=== PATIENT | male | born 1975 | race Caucasian/White ===

== ENCOUNTER 2021-04-02 19:11 | Emergency (ER) | payer MEDICAID ==
[~2021-04-02] VITALS: Ht 198.1 cm; Wt 127.0 kg
[2021-04-02 19:40] VITALS: BP_SYST 171
--- NOTE | 2021-04-02 19:40 | NUR ---
PT TO REMAIN IN TENT UNTIL ER BED BECOMES AVAILABLE.
--- NOTE | 2021-04-02 19:45 | NUR ---
PT AAO AND AMBULATORY REPORTING THROAT PAIN X 1.5 DAYS. PT REPORTS THAT HE HAD A FEVER AND MEDICATED AT HOME BUT IS UNABLE TO TOLERATE PO DUE TO PAIN.
--- NOTE | 2021-04-02 21:20 | NUR ---
DR. WHITTAKER TO TENT TO ASSESS.
[2021-04-02] MEDS ORDERED: PENI250T2 PO (21:28)
[2021-04-02] MEDS: PENICILLIN G BENZATHINE 1.2 MMU/2 ML SYR IM ONE (21:33)
[2021-04-02 22:05] VITALS: BP_SYST 158
--- NOTE | 2021-04-02 22:05 | NUR ---
Patient given written and verbal discharge instructions and verbalizes understanding. DR. REMEDIOS GRIFFIN MD discussed with patient the results and treatment provided. Patient in stable condition. ID arm band removed. Rx PER MD. Patient educated on pain management and to follow up with PMD. Pain Scale 0/10. Opportunity for questions provided and answered. Medication side effect fact sheet provided.
[2021-04-03] MEDS ORDERED: TRAM50TA2 PO (19:31)
[2021-04-03] MEDS ORDERED: ONDA-8 TL (19:31)
== END 2021-04-02 22:05 | disposition home or self-care (01) ==
LOC: SED 19:11
DX: J03.90 Acute tonsillitis, unspecified (principal); F17.210 Nicotine dependence, cigarettes, uncomplicated; Z79.899 Other long term (current) drug therapy
CPT/HCPCS: 96372; 99283; J0561

== ENCOUNTER 2021-04-03 17:26 | Emergency (ER) | payer MEDICAID ==
[~2021-04-03] VITALS: Ht 198.1 cm; Wt 127.0 kg
[~2021-04-03 17:26] MED LIST: PENI250T2 PO
[2021-04-03 17:43] VITALS: BP_SYST 141
[2021-04-03] MEDS ORDERED: KETOROLAC TROMETHAMINE 30 MG VIAL IVP ONE (17:45)
[2021-04-03] MEDS ORDERED: MORPHINE 4 MG INJ. 4 MG/ML VIAL IVP ONE (17:45)
[2021-04-03] MEDS ORDERED: AMPICILLIN SODIUM/SULBACTAM NA 3 GM in NS 100 ML IV ONE (17:45)
[2021-04-03] MEDS ORDERED: ONDANSETRON HCL 4 MG/2 ML VIAL IVP ONE (17:45)
[2021-04-03] MEDS ORDERED: NACL 0.9% 1,000 ML IV ONE (17:45)
[2021-04-03] MEDS ORDERED: DEXAMETHASONE SOD PHOSPHATE 10 MG/ML VIAL IVP ONE (17:45)
[2021-04-03] MEDS ORDERED: AMPICILLIN SODIUM/SULBACTAM NA 3 GM VIAL ONE (18:08)
[2021-04-03] MEDS ORDERED: TRAM50TA2 PO (19:31)
[2021-04-03] MEDS ORDERED: ONDA-8 TL (19:31)
[2021-04-03 19:58] VITALS: BP_SYST 122
== END 2021-04-03 19:58 | disposition home or self-care (01) ==
LOC: SED 17:26
DX: J03.90 Acute tonsillitis, unspecified (principal); Z79.899 Other long term (current) drug therapy
CPT/HCPCS: 96365; 96375; 99284; J0295; J1100; J1885; J2270; J2405

== ENCOUNTER 2021-12-23 20:02 | Emergency (ER) | payer MEDICAID ==
[~2021-12-23] VITALS: Ht 198.1 cm; Wt 142.9 kg
[~2021-12-23 20:02] MED LIST changes: +ONDA-8 TL; +TRAM50TA2 PO
[2021-12-23 20:14] VITALS: BP_SYST 191
--- NOTE | 2021-12-23 20:14 | NUR ---
Patient to ER bed 04 to gown for evaluation. Side rails up.
--- NOTE | 2021-12-23 20:17 | NUR ---
pt drove to er via private vehicle, presented to er with complaint of left flank pain 05/26. pt drove to er with his . pt stated he had bad cough and last Thursday he woke up coughing in the middle of the night and felt as if something "popped" on his left side and felt extruciating pain. Pt stated that two days later he had blood in the urine that lasted 2 days. pt today continues with pain on his left flank and additionally now has a bruise on his left flank that appeared today, pt denies any injury. pt has a history of dm does not take any meds for dm, pt also has a hx of hypertension. glucose reading is 278. pt is in bed with bed lowered, locked and rail up.
[2021-12-23 20:46] LABS: CLARITY/URINE CLEAR (CLEAR); COLOR,URINE ORANGE (YELLOW); PROTEIN URINE TRACE (NEGATIVE)
[2021-12-23 20:47] LABS: BILIRUBIN,URINE NEGATIVE (NEGATIVE); BLOOD, URINE TRACE (NEGATIVE); GLUCOSE,URINE NEGATIVE (NEGATIVE); KETONES,URINE NEGATIVE (NEGATIVE); LEUKOCYTE ESTERASE ,URINE NEGATIVE (NEGATIVE); NITRITE, URINE NEGATIVE (NEGATIVE)
[2021-12-23 20:48] LABS: UROBILINOGEN,URINE 0.2 (0.2-1.0)
[2021-12-23 20:53] LABS: HEMOGLOBIN 16.2 g/dL (14.0-18.0)
[2021-12-23 20:58] LABS: BASOPHILS # (AUTO) 0.1 K/uL (0.0-0.2); BASOPHILS % (AUTO) 0.9 % (0.0-2.0); EOSINOPHILS # (AUTO) 0.4 K/uL (0.0-0.4); EOSINOPHILS % (AUTO) 4.2 % (0.0-4.0); HEMATOCRIT 46.1 % (36-54); LYMPHOCYTES # (AUTO) 2.8 K/uL (1.0-5.5); LYMPHOCYTES % (AUTO) 27.3 % (20.5-51.5); MEAN CORPUSCULAR HEMOGLOBIN 30 pg (27-31); MEAN CORPUSCULAR HGB CONC 35 % (32-36); MEAN CORPUSCULAR VOLUME 85 fL (79.0-98.0); MONOCYTES # (AUTO) 0.6 K/uL (0.0-1.0); MONOCYTES % (AUTO) 5.8 % (1.7-9.3); NEUTROPHILS # (AUTO) 6.4 K/uL (1.8-7.7); NEUTROPHILS % (AUTO) 61.8 % (40.0-70.0); PLATELET COUNT (AUTO) 193 K/uL (130-430); RED BLOOD CELL COUNT(AUTO) 5.43 MIL/uL (4.2-6.2); RED CELL DISTRIBUTION WIDTH 12.5 % (9.0-15.0); WHITE BLOOD COUNT (AUTO) 10.3 K/uL (4.8-10.8)
--- NOTE | 2021-12-23 21:05 | NUR ---
Dr. Dewitt at bedside.
[2021-12-23 21:14] LABS: ANION GAP 7 (5-15); CALCIUM 8.6 mg/dL (8.4-11.0); CHLORIDE 99 mmol/L (98-107); CREATININE 1.11 mg/dL (0.55-1.30); GLUCOSE 279 mg/dL (70-99); POTASSIUM 4.1 mmol/L (3.5-5.1); SODIUM SERUM 131 mmol/L (136-145); UREA NITROGEN, BLOOD 22 mg/dL (8-21)
[2021-12-23 21:20] LABS: ALANINE AMINOTRANSFERASE 34 U/L (12-78); ALBUMIN 3.6 g/dL (3.4-4.8); ASPARTATE AMINOTRANSFERASE 5 U/L (10-37); TOTAL BILIRUBIN 0.3 mg/dL (0.0-1.0)
[2021-12-23 21:25] LABS: GFR AFRICAN AMERICAN 91 mL/min (>90)
[2021-12-23 22:12] LABS: ACETONE, SERUM NEGATIVE (NEGATIVE)
--- NOTE | 2021-12-23 22:30 | NUR ---
Verbalizes improvement in pain and no needs verbalized at this time.
[2021-12-23] MEDS ORDERED: D-ME118S48 PO (23:41)
[2021-12-23] MEDS ORDERED: IBUP-1971 PO (23:43)
[2021-12-23 23:55] VITALS: BP_SYST 118
--- NOTE | 2021-12-23 23:55 | NUR ---
Patient given written and verbal discharge instructions and verbalizes understanding. ER MD discussed with patient the results and treatment provided. Patient in stable condition. ID arm band removed. IV catheter removed intact and dressing applied, no active bleeding. Rx of Bromfed Dm Cough Syrup and Ibuprofen given. Patient educated on pain management and to follow up with PMD. Pain Scale 0/10. Opportunity for questions provided and answered. Medication side effect fact sheet provided.
== END 2021-12-23 23:55 | disposition home or self-care (01) ==
LOC: SED 20:02
DX: J20.9 Acute bronchitis, unspecified (principal); I10 Essential (primary) hypertension; E11.9 Type 2 diabetes mellitus without complications; Z20.822 Contact with and (suspected) exposure to COVID-19
CPT/HCPCS: 36415; 71045; 80053; 81003; 82009; 85025; 99284

== ENCOUNTER 2023-08-03 22:24 | Emergency (ER) | payer MEDICAID ==
[~2023-08-03] VITALS: Ht 195.6 cm; Wt 115.7 kg
[~2023-08-03 22:24] MED LIST changes: +BROM118S61 PO; +IBUP-1971 PO
[2023-08-03 22:40] VITALS: BP_SYST 123; PULSE 104; RESP 14; TEMP 98; O2SAT 93
[2023-08-03] MEDS ORDERED: AZITHROMYCIN 500 MG/VIAL (ZITHROMAX) IV ONE (23:00)
[2023-08-03] MEDS ORDERED: NACL 0.9% 1,000 ML IV ONE (23:00)
[2023-08-03] MEDS ORDERED: cefTRIAXone 1 GM IVPB PREMIX 50 ML IV ONE (23:00)
[2023-08-03] MEDS ORDERED: AZITHROMYCIN 500 MG in NS 250 ML IV ONE (23:00)
[2023-08-03 23:27] LABS: BASOPHILS % (AUTO) 0.2 % (0.0-2.0); EOSINOPHILS # (AUTO) 0.1 K/uL (0.0-0.4); EOSINOPHILS % (AUTO) 1.3 % (0.0-4.0); HEMATOCRIT 46.5 % (36-54); HEMOGLOBIN 15.2 g/dL (14.0-18.0); LYMPHOCYTES # (AUTO) 2.3 K/uL (1.0-5.5); LYMPHOCYTES % (AUTO) 20.4 % (20.5-51.5); MEAN CORPUSCULAR HEMOGLOBIN 26 pg (27-31); MEAN CORPUSCULAR HGB CONC 33 % (32-36); MEAN CORPUSCULAR VOLUME 80 fL (79.0-98.0); MONOCYTES # (AUTO) 0.7 K/uL (0.0-1.0); MONOCYTES % (AUTO) 6.6 % (1.7-9.3); NEUTROPHILS % (AUTO) 71.5 % (40.0-70.0); PLATELET COUNT (AUTO) 260 K/uL (130-430); WHITE BLOOD COUNT (AUTO) 11.1 K/uL (4.8-10.8)
[2023-08-03] MEDS ORDERED: MORPHINE 4 MG INJ. 4 MG/ML VIAL IVP ONE (23:45)
[2023-08-03 23:47] LABS: BILIRUBIN,URINE 1+ (NEGATIVE); BLOOD, URINE NEGATIVE (NEGATIVE); COLOR,URINE YELLOW (YELLOW); GLUCOSE,URINE NEGATIVE (NEGATIVE); KETONES,URINE TRACE (NEGATIVE); LEUKOCYTE ESTERASE ,URINE NEGATIVE (NEGATIVE); NITRITE, URINE NEGATIVE (NEGATIVE); PROTEIN URINE 2+ (NEGATIVE); UROBILINOGEN,URINE 0.2 (0.2-1.0)
[2023-08-04 00:08] LABS: BLOOD GAS HCO3 22.7 mmol/L (21.0-27.0); BLOOD GAS PCO2 40.9 mmHg (32.0-45.0); BLOOD GAS PH 7.363 (7.350-7.450); BLOOD GAS PO2 67.7 mmHg (75.0-100.0)
[2023-08-04 00:09] LABS: ABG O2 SAT% ESTIMATE 92.9 % (94.0-100.0); ALLEN'S TEST POSITIVE (P); BLOOD GAS BASE EXCESS -2.5 mmol/L (-3.0-3.0)
[2023-08-04 00:09] LABS: CALCIUM 9.4 mg/dL (8.4-11.0); CREATININE 0.77 mg/dL (0.55-1.30); POTASSIUM 3.9 mmol/L (3.5-5.1)
[2023-08-04 00:15] LABS: CLARITY/URINE SLIGHTLY CLOUDY (CLEAR)
[2023-08-04 00:45] LABS: BACTERIA,URINE RARE /HPF (None Seen); RBC,URINE 0-3 /HPF (0-3); WBC,URINE 0-3 /HPF (0-3)
[2023-08-04] MEDS ORDERED: OXYC-874 (00:58)
[2023-08-04] MEDS ORDERED: TIRZ7.5P SUBCUT (00:58)
[2023-08-04] MEDS ORDERED: AUG875 PO (00:58)
[2023-08-04] MEDS ORDERED: TRAM50TA2 PO (00:58)
[2023-08-04] MEDS ORDERED: MORPHINE 4 MG INJ. 4 MG/ML VIAL IVP ONE (05:00)
[2023-08-04 10:35] VITALS: BP_SYST 111; PULSE 79; RESP 16; TEMP 97.8; O2SAT 94
== END 2023-08-04 10:28 | disposition short-term general hospital (02) ==
LOC: SED 22:24
DX: J18.1 Lobar pneumonia, unspecified organism (principal); R06.02 Shortness of breath; R07.89 Other chest pain; R50.9 Fever, unspecified; R05.9 Cough, unspecified; E11.9 Type 2 diabetes mellitus without complications; Z79.899 Other long term (current) drug therapy
CPT/HCPCS: 99285; 96365; 71045; 96367; 96375; 80048; 81001; 85025; 87040; 36415; 36600; 82803; 83605; 81000; 96376; 81015; J0456; J0696; J2270 ×2; 93005